=== PATIENT | male | born 1950 | race African-American/Black ===

== ENCOUNTER 2024-03-12 12:02 | Emergency (ER) | payer MEDICARE, OTHER ==
[~2024-03-12] VITALS: Ht 180.3 cm; Wt 88.9 kg
[2024-03-12 12:25] VITALS: BP 119/78; PULSE 82; RESP 16; O2SAT 100
[2024-03-12 13:05] VITALS: TEMP 98.5
[2024-03-12] MEDS: ACETAMINOPHEN 325MG TABLET PO STA (13:05)
[2024-03-12 14:21] LABS: BASOPHILS % 1.3 % (0.0-2.0); EOSINOPHILS % 3.1 % (0.0-5.0); HEMATOCRIT. 41.6 % (42.0-52.0); HEMOGLOBIN. 13.5 g/dL (14.0-18.0); LYMPHOCYTES % 31.1 % (20.0-50.0); MEAN CORPUSCULAR HEMOGLOBIN 27.7 pg (28.0-32.0); MEAN CORPUSCULAR HGB CONC 32.4 g/dL (31.0-37.0); MEAN CORPUSCULAR VOLUME 85.5 fL (80.0-94.0); MEAN PLATELET VOLUME 9.1 fl (7.4-10.4); MONOCYTES % 11.4 % (2.0-8.0); NEUTROPHILS % 53.1 % (40.0-76.0); PLATELET 193 x1000/uL (130-400); RED BLOOD CELL COUNT 4.86 mill/uL (4.7-6.1); RED CELL DISTRIBUTION WIDTH 15.8 % (11.6-14.6); WHITE BLOOD COUNT 4.9 x1000/uL (4.5-11.0)
[2024-03-12 14:25] LABS: CHLORIDE 103 mEq/L (98-107); POTASSIUM 3.7 mEq/L (3.5-5.1); SODIUM 137 mEq/L (136-145)
[2024-03-12 14:26] LABS: CALCIUM 9.7 mg/dL (8.7-10.4); CARBON DIOXIDE 29 mEq/L (21-32)
[2024-03-12 14:30] LABS: URIC ACID 10.3 mg/dL (3.7-9.2)
[2024-03-12 14:31] LABS: CREATININE 1.3 mg/dL (0.6-1.3); GLUCOSE 97 mg/dL (70-105); UREA NITROGEN BLOOD 16 mg/dL (9-23)
[2024-03-12] MEDS: METHYLPREDNISOLONE SOD SUCC 125MG/2ML (ACT-O-VIAL) IM STA (15:34)
[2024-03-12] MEDS ORDERED: NAPR-681 PO (15:58)
== END 2024-03-12 16:35 | disposition home or self-care (01) ==
LOC: ER 12:19
DX: M20.12 Hallux valgus (acquired), left foot (principal); M10.9 Gout, unspecified
CPT/HCPCS: 99283; 80048; 84550; 85025; 36415; 73630; 96372; J2919